=== PATIENT | female | born 1945 | race Caucasian/White ===

== ENCOUNTER 2020-04-21 13:56 | Outpatient (CLI) | payer MEDICARE, SELFPAY ==
--- NOTE | 2020-04-21 13:45 | XR_ITS ---
WS: [id number] SCREENING DEXA SCAN [employer] CLINICAL INFORMATION: ASYMPTOMATIC MENOPAUSAL STATE COMPARISON: FINDINGS: The L1-L4 bone mineral density measures 1.084 g/cm2. This corresponds to a T score score of -0.8 and Z score of 0.9. Left femoral neck bone mineral density measures 0.808 g/cm2. This corresponds to a T score of -1.6 an d Z score of 0.2. Right femoral neck bone mineral density measures 0.811 g/cm2. This corresponds to a T score -1.6of an d Z score of 0.2. Mean femoral neck bone mineral density measures 0.810 g/cm2. This corresponds to a T score of -1.6 an d Z score of 0.2. XR/XR DEXA axial skeleton* [id number] IMPRESSION: Osteopenia in the femoral necks. Normal bone mineralization lumbar spine. Patient's FRAX calculated 10 year probability for major osteoporotic fracture i s 13.3 % and osteoporotic hip fracture is 3.3%.
== END 2020-04-21 13:57 | disposition home or self-care (01) ==
LOC: RADSHAW 13:57
PROVIDERS: Family Provider Family Medicine; PCP Family Medicine; Visit Provider Family Medicine
DX: Z78.0 Asymptomatic menopausal state (principal); M85.862 Other specified disorders of bone density and structure, left lower leg; M85.861 Other specified disorders of bone density and structure, right lower leg
CPT/HCPCS: 77080

== ENCOUNTER 2020-06-13 08:11 | Outpatient (CLI) | payer MEDICARE, SELFPAY ==
--- NOTE | 2020-06-13 08:22 | MM_ITS ---
WS: [id number] BILATERAL SCREENING DIGITAL MAMMOGRAM WITH CAD HISTORY: SCREEN COMPARISON: 05/16/2019 and 03/31/2018 Bilateral CC and MLO views submitted. Computer aided detection analyzed. Breast composition: There are scattered areas of fibroglandular density. No suspicious masses, microc alcifications or architectural distortion. Benign bilateral breast calcifications. No mass. MM/[place] [id number] IMPRESSION: BI-RADS: 2-Benign FOLLOW UP: 1 Year Follow-up
== END 2020-06-13 08:12 | disposition home or self-care (01) ==
LOC: RADSHAW 08:14
PROVIDERS: PCP Family Medicine; Visit Provider Family Medicine
DX: Z12.31 Encounter for screening mammogram for malignant neoplasm of breast (principal)
CPT/HCPCS: 77067

== ENCOUNTER 2021-09-02 08:41 | Outpatient (CLI) | payer MEDICARE, SELFPAY ==
--- NOTE | 2021-09-02 08:47 | MM_ITS ---
WS: [id number] BILATERAL DIGITAL SCREENING MAMMOGRAPHY WITH CAD CLINICAL INFORMATION: SCREENING HISTORY: Screening mammogram. No current complaints. COMPARISON: June 13, 2020 TECHNIQUE: Bilateral CC and MLO views. FINDINGS: Scattered fibroglandular densities bilaterally. Punctate and lucent centered calcifications. Dystroph ic calcifications. No suspicious focal mass, asymmetry, calcifications, or architectural distortion. No evidence of malignancy. MM/[place] [id number] IMPRESSION: BI-RADS: 2-Benign FOLLOW UP: 1 Year Follow-up Recommend return to annual screening mammography.
== END 2021-09-02 08:42 | disposition home or self-care (01) ==
LOC: RADSHAW 08:45
PROVIDERS: PCP Family Medicine; Visit Provider Family Medicine
DX: Z12.31 Encounter for screening mammogram for malignant neoplasm of breast (principal)
CPT/HCPCS: 77067

== ENCOUNTER 2022-09-09 07:57 | Outpatient (CLI) | payer MEDICARE, SELFPAY ==
--- NOTE | 2022-09-09 08:12 | MM_ITS ---
WS: [id number] BILATERAL SCREENING DIGITAL TOMOSYNTHESIS MAMMOGRAM WITH CAD HISTORY: SCREENING COMPARISON: 09/02/2021, 06/13/2020, 05/16/2019 Bilateral CC and MLO views with tomosynthesis and synthetic mammography submitted. Computer aided det ection analyzed. Breast composition: There are scattered areas of fibroglandular density. No suspicious masses, microc alcifications or architectural distortion. Benign calcifications within each breast. MM/[place] [id number] IMPRESSION: BI-RADS: 2-Benign FOLLOW UP: 1 Year Follow-up
== END 2022-09-09 07:58 | disposition home or self-care (01) ==
LOC: RAD 07:58
PROVIDERS: PCP Family Medicine; Visit Provider Family Medicine
DX: Z12.31 Encounter for screening mammogram for malignant neoplasm of breast (principal)
CPT/HCPCS: 77063; 77067

== ENCOUNTER 2023-04-08 13:24 | Outpatient (CLI) | payer MEDICARE, SELFPAY ==
--- NOTE | 2023-04-08 13:36 | XRR_ITS ---
PROCEDURE INFORMATION: Exam: XR Right Knee Exam date and time: 04/08/2023 1:46 PM Age: 77 years old Clinical indication: Pain; Knee; Bilateral; Additional info: Bilateral knee pain TECHNIQUE: Imaging protocol: Radiologic exam of the right knee. Views: 3 views. COMPARISON: No relevant prior studies available. FINDINGS: Bones/joints: No acute fracture or dislocation. Moderate tricompartmental joint space narrowing and marginal osteophyte formation greatest at the medial compartment with associated subchondral sclerosis. Suprapatellar joint effusion. Soft tissues: Unremarkable. Vasculature: Mild peripheral vascular calcifications. XR/XR knee RT 4V [id number] IMPRESSION: 1. Small joint effusion without acute fracture. 2. Moderate right knee tricompartmental osteoarthritis greatest at the medial compartment.
--- NOTE | 2023-04-08 13:36 | XRR_ITS ---
PROCEDURE INFORMATION: Exam: XR Left Knee Exam date and time: 04/08/2023 1:46 PM Age: 77 years old Clinical indication: Pain; Knee; Bilateral; Additional info: Bilateral knee pain TECHNIQUE: Imaging protocol: Radiologic exam of the left knee. Views: 4 or more views. COMPARISON: No relevant prior studies available. FINDINGS: Bones/joints: No acute fracture or dislocation. Moderate tricompartmental nonuniform joint space narrowing and marginal osteophyte formation greatest at the medial compartment with associated subchondral sclerosis and cystic change. Suprapatellar joint effusion. Soft tissues: Small phlebolith at the prefemoral subcutaneous layer. Other findings: Vertical linear artifact noted on all images. XR/XR knee LT 4V [id number] IMPRESSION: 1. Small joint effusion without acute fracture. 2. Moderate tricompartmental left knee osteoarthritis greatest at the medial compartment.
== END 2023-04-08 13:25 | disposition home or self-care (01) ==
PROVIDERS: PCP Family Medicine; Visit Provider Family Medicine
DX: M17.0 Bilateral primary osteoarthritis of knee (principal)
CPT/HCPCS: 73564

== ENCOUNTER → 2023-06-07 08:55 | Outpatient (BNVA) | payer MEDICARE, SELFPAY | PROVIDERS: PCP Family Medicine; Referring Provider Family Medicine; Visit Provider Student in an Organized Health Care Education/Training Program | DX: M25.561 Pain in right knee (principal); M25.562 Pain in left knee; M17.10 Unilateral primary osteoarthritis, unspecified knee; Z46.89 Encounter for fitting and adjustment of other specified devices | CPT/HCPCS: 20610; 73560; 73565; 97760; 99204; J3301; L1851 ==

== ENCOUNTER 2023-06-07 14:10 | Outpatient (CLI) | payer MEDICARE, SELFPAY | END 2023-06-07 14:11 | disposition home or self-care (01) | LOC: SPT 14:11 | PROVIDERS: PCP Family Medicine; Visit Provider Student in an Organized Health Care Education/Training Program | DX: Z46.89 Encounter for fitting and adjustment of other specified devices (principal); M17.10 Unilateral primary osteoarthritis, unspecified knee | CPT/HCPCS: 97760; 99204; L1851 ==

== ENCOUNTER → 2023-07-01 08:43 | Outpatient (BNVA) | payer MEDICARE, SELFPAY | PROVIDERS: PCP Family Medicine; Visit Provider Physician Assistant | DX: G56.03 Carpal tunnel syndrome, bilateral upper limbs (principal) | CPT/HCPCS: 99213 ==

== ENCOUNTER 2023-09-14 08:41 | Outpatient (CLI) | payer MEDICARE, SELFPAY ==
--- NOTE | 2023-09-14 09:23 | MM_ITS ---
WS: [id number] BILATERAL 3D TOMOSYNTHESIS DIGITAL SCREENING MAMMOGRAPHY WITH CAD CLINICAL INFORMATION: SCREEN HISTORY: Screening mammogram. No current complaints. COMPARISON: 2021 TECHNIQUE: Bilateral CC and MLO views. FINDINGS: Scattered fibroglandular densities bilaterally. No suspicious focal mass, asymmetry, calcifications, or architectural distortion. No evidence of malignancy. Incidental punctate and lucent centered calci fications. Stable dystrophic calcification anterior outer RIGHT breast. IMPRESSION: MM/[place] [id number] BI-RADS: 2-Benign FOLLOW UP: 1 Year Follow-up Recommend return to annual screening mammography.
== END 2023-09-14 08:42 | disposition home or self-care (01) ==
LOC: RAD 08:42
PROVIDERS: PCP Family Medicine; Visit Provider Family Medicine
DX: Z12.31 Encounter for screening mammogram for malignant neoplasm of breast (principal)
CPT/HCPCS: 77063; 77067

== ENCOUNTER → 2023-09-23 10:57 | Outpatient (BNVA) | payer MEDICARE, SELFPAY | PROVIDERS: PCP Family Medicine; Visit Provider Student in an Organized Health Care Education/Training Program | DX: M17.0 Bilateral primary osteoarthritis of knee | CPT/HCPCS: 20610; 99213; J3301 ==

== ENCOUNTER → 2024-01-10 14:12 | Outpatient (BNVA) | payer MEDICARE, SELFPAY | PROVIDERS: PCP Family Medicine; Visit Provider Student in an Organized Health Care Education/Training Program | DX: M17.0 Bilateral primary osteoarthritis of knee (principal) | CPT/HCPCS: 99213 ==

== ENCOUNTER 2024-07-19 15:18 | Outpatient (CLI) | payer MEDICARE, SELFPAY ==
--- NOTE | 2024-07-19 15:23 | XR_ITS ---
WS: [id number] SCREENING DEXA SCAN [employer] CLINICAL INFORMATION: ASYMPTOMATIC MENOPAUSAL STATE COMPARISON: 2019 FINDINGS: The L1-L4 bone mineral density measures 1.04. This corresponds to a T score score of -1.3 and Z score of 0.6. Left femoral neck bone mineral density measures 0.733 g/cm2. This corresponds to a T score of -2.2 an d Z score of -0.1. Right femoral neck bone mineral density measures 0.749 g/cm2. This corresponds to a T score -2.1of an d Z score of 0.0. Mean femoral neck bone mineral density measures 0.741 g/cm2. This corresponds to a T score of -2.1 an d Z score of 0.0. XR/XR DEXA axial skeleton* [id number] IMPRESSION: Osteopenia lumbar spine. Osteopenia femoral necks. Patient's FRAX calculated 10 year probability for major osteoporotic fracture i s 16.5% and osteoporotic hip fracture is 5.2%. Bone mineral density lumbar spine decreased -4.4% Bone mineral density femoral necks decreased -8.5%
== END 2024-07-19 15:19 | disposition home or self-care (01) ==
LOC: RAD 15:19
PROVIDERS: PCP Family Medicine; Visit Provider Family Medicine
DX: Z13.820 Encounter for screening for osteoporosis (principal); Z78.0 Asymptomatic menopausal state; M85.80 Other specified disorders of bone density and structure, unspecified site
CPT/HCPCS: 77080

== ENCOUNTER 2024-09-17 09:42 | Outpatient (CLI) | payer MEDICARE, SELFPAY ==
--- NOTE | 2024-09-17 09:49 | MM_ITS ---
WS: [id number] BILATERAL SCREENING DIGITAL TOMOSYNTHESIS MAMMOGRAM WITH CAD HISTORY: SCREENING COMPARISON: 09/14/2023, 09/09/2022, 09/02/2021 Bilateral CC and MLO views with tomosynthesis and synthetic mammography submitted. Computer aided det ection analyzed. Breast composition: There are scattered areas of fibroglandular density. No suspicious masses, microc alcifications or architectural distortion. Scattered benign calcifications in each breast. MM/MM scr tomosynthesis [id number] IMPRESSION: BI-RADS: 2 - Benign. FOLLOW UP: 1 Year Follow-up
== END 2024-09-17 09:43 | disposition home or self-care (01) ==
PROVIDERS: PCP Family Medicine; Visit Provider Family Medicine
DX: Z12.31 Encounter for screening mammogram for malignant neoplasm of breast (principal); R92.323 Mammographic fibroglandular density, bilateral breasts; R92.1 Mammographic calcification found on diagnostic imaging of breast
CPT/HCPCS: 77063; 77067

== ENCOUNTER → 2024-10-02 09:00 | Outpatient (BNVA) | payer MEDICARE, SELFPAY | PROVIDERS: PCP Family Medicine; Referring Provider Family Medicine; Visit Provider Specialist | DX: G56.03 Carpal tunnel syndrome, bilateral upper limbs (principal) | CPT/HCPCS: 95911 ==

== ENCOUNTER 2024-10-05 08:59 | Outpatient (CLI) | payer MEDICARE, SELFPAY ==
--- NOTE | 2024-10-05 09:07 | MR_ITS ---
WS: [id number] MRI BRAIN WITH HIGH-RESOLUTION IMAGING THROUGH THE INTERNAL AUDITORY CANALS WITHOUT AND WITH CONTRAST HISTORY: DIZZINESS COMPARISON: None available. TECHNIQUE: Multiplanar, multisequence imaging is performed through the brain. Additional 3 mm imaging performed in multiple planes through the internal auditory canal. Postcontrast imaging with 14 ml's of MultiHance. No acute intracranial hemorrhage, midline shift, edema or mass effect. Normal diffusion imaging. No acute infarct. Mild cerebral volume loss and mild small vessel ischemic changes in the subcortical white matter. No prior large infarct. Ventricles and extra-axial spaces are normal. No inferior displacement of cerebellar tonsils. Clivus and pituitary gland are normal. Internal and external auditory canals: Unremarkable. Cranial nerves VII and VIII complexes: Unremarkable. No enhancement or mass. Cerebellopontine angles: Normal. Paranasal sinuses: Normal. Mastoid air cells: Normal. Calvarium and scalp: Normal. Visualized [place] and dural venous sinuses demonstrate no abnormality. MR/MR iac's wo/w con* [id number] IMPRESSION: 1. No mass or signal abnormality at the cerebellopontine angles or internal au ditory canals. 2. Mild cerebral atrophy and mild small vessel disease. No large territory inf arct. 3. No intracranial mass. 4. No hippocampal atrophy.
[2024-10-05] MEDS: gadobenate dimeglumine 20 mL vial IV (10:33)
== END 2024-10-05 09:00 | disposition home or self-care (01) ==
PROVIDERS: PCP Family Medicine; Visit Provider Family Medicine
DX: R42 Dizziness and giddiness (principal); G31.9 Degenerative disease of nervous system, unspecified; I73.9 Peripheral vascular disease, unspecified
CPT/HCPCS: 70553

== ENCOUNTER → 2024-11-06 08:19 | Outpatient (BNVA) | payer MEDICARE, SELFPAY | PROVIDERS: PCP Family Medicine; Visit Provider Student in an Organized Health Care Education/Training Program | DX: G56.03 Carpal tunnel syndrome, bilateral upper limbs (principal); M65.322 Trigger finger, left index finger; M65.332 Trigger finger, left middle finger | CPT/HCPCS: 73130; 99214 ==

== ENCOUNTER 2024-11-08 12:12 | Outpatient (RCR) | payer MEDICARE, SELFPAY | END 2024-11-16 23:59 | disposition home or self-care (01) | LOC: SPT 12:12 | PROVIDERS: PCP Family Medicine; Visit Provider Otolaryngology | DX: R42 Dizziness and giddiness (principal) | CPT/HCPCS: 95992; 97161 ==

== ENCOUNTER 2024-11-22 06:16 | Day surgery (SDC) | payer MEDICARE, SELFPAY ==
[2024-11-22 06:36] VITALS: BP 125/72; PULSE 69; RESP 18; TEMP 36.2; O2SAT 95
[2024-11-22 06:43] VITALS: BMI 27.3
[2024-11-22] MEDS: ketorolac 30 mg/mL INJ IVP (06:48)
[2024-11-22] MEDS: sodium chloride 0.9% 1,000 ML 30 ML IV (06:48)
[2024-11-22] MEDS: acetaminophen 1,000 MG/100 ML PIGGYBACK 400 MG IV (06:49)
--- NOTE | 2024-11-22 07:04 | ANES.PREANE2 ---
Pre-Anesthetic Assessment Height/Weight: Height 1.55 m Weight 65.771 kg Temp Pulse Resp BP Pulse Ox O2 Del Method 97.1 F L 69 18 125/72 95 Room Air 11/22/24 06:36 11/22/24 06:36 11/22/24 06:36 11/22/24 06:36 11/22/24 06:36 11/22/24 06:36 Preop Diagnosis: Left Carpal Tunnel syndrome, left index and middle finger trigger Operation Date: 11/22/24 08:00 Proposed Procedures p Carpal Tunnel Release(Left) - Jose Sauk, DO s Trigger Finger Release left index and left middle finger(Left) - Jose Sauk, DO Familial anesthetic complications: None Was Beta Christy taken within 24 hours: N/A Was Clonidine taken within 24 hours: N/A Last intake: Intake Last Liquid Date 11/21/24 Last Liquid Time 19:00 Last Solid Date 11/21/24 Last Solid Time 18:00 Social No alcohol and No tobacco Exam alert, oriented x 3, clear to auscultation bilaterally and regular rate & rhythm Airway Mallampati: Class I Dentition: other (upper molars mimssing) Metabolic Thyroid Disease Anesthetic Plan ASA status: 2 Risk of > 500 ml blood loss (7ml/kg in children): No Other Pertinent Information Patient had injection in her eye yesterday for macular degeneration. States it was a liquid, not air/bubble. Will avoid nitrous oxide out of caution Medications/Allergies Home Medications ?Medication ?Instructions ?Recorded ?Confirmed ?Last Taken ?Type Certified Residential Medication Aide Brace #1 ea 06/07/23 11/06/24 Unknown Rx levothyroxine 75 mcg capsule 75 mcg PO DAILY 06/07/23 11/21/24 11/21/24 History Allergies Allergy/AdvReac Type Severity Reaction Status Date / Time No Known Allergies Allergy Verified 11/22/24 06:59 Current Medications Generic Name Dose Route Start Last Admin Trade Name Freq PRN Reason Stop Dose Admin Sodium Chloride 1,000 mls @ 30 mls/hr 11/22/24 06:30 11/22/24 06:48 Sodium Chloride 0.9% IV 11/23/24 06:29 30 mls/hr .Q24H ABBI Administration PFSH Anesthesia Social History Smoking and tobacco/nicotine status: never used tobacco/nicotine Alcohol intake: never Data Anesthesia Cardiac Studies: No Data to Display
--- NOTE | 2024-11-22 07:06 | W.PM.OPSUD ---
Surgery/Procedure H&P Update DATE OF PROCEDURE: November 22, 2024 DATE H&P PERFORMED: 11/06/24 H&P UPDATE INFORMATION: I have reviewed H&P completed within last 30 days, I have examined patient prior to procedure and No changes to prior documentation PREOP DIAGNOSIS: Left Carpal Tunnel syndrome, left index and middle finger trigger PRIMARY INDICATION FOR PROCEDURE: Left carpal tunnel syndrome, left index and middle finger trigger PLANNED PROCEDURE: Operation Date: 11/22/24 08:00 Proposed Procedures p Carpal Tunnel Release(Left) - Jose Vera DO s Trigger Finger Release left index and left middle finger(Left) - Jose Vera DO
[2024-11-22] MEDS: ceFAZolin 2,000 mg SDV 2000 MG IVP (07:42)
[2024-11-22] MEDS: lidocaine 1% 10 ML INJ 5 ML XX (08:08)
[2024-11-22] MEDS: ROPivacaine 0.5% SDV 30 mL 50 MG INJECTION (08:10)
[2024-11-22] MEDS: lidocaine-epi 1% 20 mL INJ 5 ML INJECTION (08:10)
--- NOTE | 2024-11-22 08:34 | P.OP_ITS ---
Operative Report Date of procedure: November 22, 2024 Surgeon: Jose Vera DO Procedure: Preop Diagnosis: Left Carpal Tunnel Syndrome Left index finger trigger Left middle finger trigger Post-op diagnosis: Same Procedure done: 1. Left carpal tunnel release 2. Left index finger trigger release 3. Left middle finger trigger release Surgeon: Jose Vrea DO Anesthesia: MAC (Local) Estimated blood loss: [10 ]mL Tourniquet time [15 ]minutes IV fluids: See anesthesia record Complications: None Findings: See operative report narrative Condition: stable Disposition: same day Brief History: Patient is a pleasant [ 79 ]year-old [ F ] with left carpal tunnel syndrome and left index and middle finger triggers. Patient has been worked up in the outpatient setting findings and physical examination consistent with this. Patient nerve conduction studies consistent with carpal tunnel syndrome. We detailed out patient's risk benefits complication alternatives with surgical and nonsurgical treatment options. Through shared decision making, patient agrees to proceed with surgical intervention of the left carpal tunnel release and left index finger trigger release, left middle finger trigger release. Patient understands and agrees with current plan. All questions answered. Patient elects to proceed with surgical intervention. Procedure: Patient seen and evaluated in the preoperative holding area. Consent was review ed and signed with patient. Correct extremity was marked. Patient was seen evaluated by the anesthesia department once cleared for surgery was brought back to the operative suite. Patient was kept on [facility] in supine position all bony prominences were well-padded patient properly secured to the bed. Left upper extremity was then placed onto an armboard. A nonsterile tourniquet was applied to the left upper arm. Patient underwent anesthesia per the anesthesia department. Patient's left upper extremity was then prepped and draped in standard orthopedic fashion. Final timeout performed. Patient received appropriate preoperative antibiotics. Under sterile aseptic technique patient received local anesthesia over the preplanned carpal tunnel incision site and left index and middle finger trigger digital blocks performed. Esmarch was used to exsanguinate the left upper extremity and tourniquet was insufflated to 250 mmHg. A standard mini open left carpal tunnel incision was made. Starting distally at Mahajan's cardinal line in line with the fourth ray extending proximally distal to the wrist crease centered over the carpal tunnel. Sharp scalpel incision was made through skin and subcutaneous tissue. Self-retaining retractor was placed and the palmar fascia was identified. This was then split longitudinally and direct visualization of the transverse carpal ligament was then made. I then utilizing scalpel feathered through the transverse carpal ligament until I entered the floor of the transverse carpal tunnel ligament into the carpal tunnel. Next I switched to dissection scissors and completed my release of the transverse carpal ligament distally with care to protect the recurrent motor branch. I completely released into the palmar fat and until no entrapment was noted distally. Care was made to protect the superficial palmar arch during my distal dissection. Next, nasal speculum placed proximally for retraction of soft tissue on top of the Transverse carpal ligament. Next the contents of the carpal tunnel where protected and and subsequently utilizing dissection scissors under loupe magnification completely released the transverse carpal ligament proximally into the antebrachial fascia. Care was made to protect the palmar cutaneous branch by keeping my scissors curved ulnarly. Once completely released, I then placed my [place] and had appropriate decompression of the carpal tunnel proximally as well as distally. I then inspected the contents of the carpal tunnel which showed an hourglass shape of the median nerve showing its compression. No masses were noted. Tendons appeared healthy. Wound was then thoroughly irrigated. Wet Ray-Petey placed inside the incision and proceeded with trigger releases. Next proceeded with left index finger trigger release and middle finger trigger release. Once appropriately anesthetized a standard oblique incision was made centering over the A1 omid following patient's flexor crease?for the index finger first. Sharp scalpel incision was made only through skin and then switched to Littler dissection scissors and spread longitudinally directly over the flexor tendon sheath.? I then mobilized both radially and ulnarly and Kasdan retractors were used and placed by my health education assistant to protect neurovascular bundle.? Next I visualized the A1 omid and this was incised with a scalpel.? I then switched to dissection scissors and released the A1 omid both proximally as well as distally to its entirety.? Significant tendon sheath fluid was noted consistent with inflammation.? Mild fraying of the flexor tendons noted but no tear.? At this point I utilized a rag nail and pulled the tendons FDS and FDP out of the incision and no?triggering was noted.? Next I proceeded with trigger release of the middle finger. A standard oblique incision was made centering over the A1 omid following patient's flexor crease?for the index finger first. Sharp scalpel incision was made only through skin and then switched to Littler dissection scissors and spread longitudinally directly over the flexor tendon sheath.? I then mobilized both radially and ulnarly and Kasdan retractors were used and placed by my health education assistant to protect neurovascular bundle.? Next I visualized the A1 omid and this was incised with a scalpel.? I then switched to dissection scissors and released the A1 omid both proximally as well as distally to its entirety.? Significant tendon sheath fluid was noted consistent with inflammation.? Mild fraying of the flexor tendons noted but no tear.? At this point I utilized a rag nail and pulled the tendons FDS and FDP out of the incision and no?triggering was noted.? I then had anesthesia wake up the patient and patient was able to actively flex and extend with no?triggering.? This point thorough irrigation was performed.? Tourniquet deflated hemostasis satisfactory with bipolar.? I then subsequently closed the incisions with interrupted nylon suture.? Xeroform 4 x 4's, Kerlix and an Sigifredo wrap was applied for a bulky soft dressing.? Patient was then subsequently awakened from anesthesia and taken to PACU in stable condition tolerated procedure without issues. Disposition: Patient taken to PACU in stable condition recovering well. Dressing clean dry and intact. Patient will receive appropriate discharge instructions as well as pain medication postoperatively. Patient to follow-up with me in the office in 2 weeks. They understand they may be weightbearing as tolerated to the left hand. Patient should keep incision clean dry and intact. Patient understands if any questions or concerns may contact the office.
--- NOTE | 2024-11-22 08:34 | W.PM.BPON ---
Date of Procedure: [11/22/2024] Surgeon: [Jose Vera DO] Motor And Generator Brush Maker(s): [None] Procedure(s) performed: Left carpal tunnel release Left index finger trigger release Left middle finger trigger release Findings of the procedure(s): Patient underwent left carpal tunnel release and left index finger and left middle finger trigger release without issues or complications Estimated blood loss: [10mL] Specimen(s) removed: [None] Post-operative diagnosis: [Left carpal tunnel syndrome, left index finger trigger, left middle finger trigger]
[2024-11-22 08:36] VITALS: BP 99/53; PULSE 69; RESP 16; TEMP 36.2; O2SAT 93
[2024-11-22 08:41] VITALS: BP 90/48; PULSE 68; RESP 16; O2SAT 93
[2024-11-22 08:46] VITALS: BP 107/60; PULSE 68; RESP 16; O2SAT 94
[2024-11-22 08:51] VITALS: BP 106/59; PULSE 66; RESP 16; TEMP 36.2; O2SAT 93
[2024-11-22 09:39] VITALS: BP 119/65; PULSE 59; RESP 18; O2SAT 99
--- NOTE | 2024-11-22 10:10 | ANE.PACU2 ---
Inpatient post-anesthesia follow up: Airway intact: Yes Vital signs: Temperature 97.1 F Pulse Rate 59 Respiratory Rate 18 Blood Pressure 119/65 Pulse Oximetry 99 Oxygen Delivery Me thod Room Air Oxygen Flow Rate Fraction of Inspir ed Oxygen Hydration adequate: Yes Nausea and vomiting: No Pain level: 1 Mental status: Baseline
== END 2024-11-22 10:12 | disposition home or self-care (01) ==
PROVIDERS: PCP Family Medicine; Visit Provider Student in an Organized Health Care Education/Training Program
PROC: (CPT 64721; principal; 2024-11-22 08:00)
PROC: (CPT 26055; 2024-11-22 08:00)
DX: G56.02 Carpal tunnel syndrome, left upper limb (principal); K08.409 Partial loss of teeth, unspecified cause, unspecified class; M65.322 Trigger finger, left index finger; H35.30 Unspecified macular degeneration; M65.332 Trigger finger, left middle finger; Z79.890 Hormone replacement therapy
CPT/HCPCS: 64721; 26055 ×2; J0131; J0690; J1885; J2704; J2795; J7030

== ENCOUNTER → 2024-12-11 10:17 | Outpatient (BNVA) | payer MEDICARE, SELFPAY | PROVIDERS: PCP Family Medicine; Visit Provider Physician Assistant | DX: Z98.890 Other specified postprocedural states (principal) | CPT/HCPCS: 99024 ==

== ENCOUNTER 2024-12-18 09:51 | Outpatient (RCR) | payer MEDICARE, SELFPAY | END 2025-01-16 23:59 | disposition home or self-care (01) | LOC: SOT 09:51 | PROVIDERS: Visit Provider Physician Assistant | DX: G56.02 Carpal tunnel syndrome, left upper limb (principal); M65.322 Trigger finger, left index finger; M65.332 Trigger finger, left middle finger; Z48.811 Encounter for surgical aftercare following surgery on the nervous system | CPT/HCPCS: 97022; 97035; 97110; 97140; 97166 ==

== ENCOUNTER 2025-01-17 05:00 | Outpatient (RCR) | payer MEDICARE, SELFPAY | END 2025-02-16 23:59 | disposition home or self-care (01) | LOC: SOT 05:00 | PROVIDERS: Visit Provider Physician Assistant | DX: G56.02 Carpal tunnel syndrome, left upper limb (principal); M65.322 Trigger finger, left index finger; M65.332 Trigger finger, left middle finger | CPT/HCPCS: 97022; 97140 ==

== ENCOUNTER → 2025-04-17 10:52 | Outpatient (BNVA) | payer MEDICARE, SELFPAY | PROVIDERS: Referring Provider Nurse Practitioner Family; Visit Provider Psychiatry & Neurology Neurology | DX: R42 Dizziness and giddiness (principal); E07.9 Disorder of thyroid, unspecified; E55.9 Vitamin D deficiency, unspecified | CPT/HCPCS: 36415; 80053; 82306; 82607; 82746; 83735; 83921; 84207; 84439; 84443; 84591; 85025; 99203 ==

== ENCOUNTER → 2025-05-03 11:33 | Outpatient (BNVA) | payer MEDICARE, SELFPAY | PROVIDERS: Referring Provider Specialist; Visit Provider Specialist | DX: R42 Dizziness and giddiness (principal) | CPT/HCPCS: 95816 ==

== ENCOUNTER → 2025-07-03 14:24 | Outpatient (BNVA) | payer MEDICARE, SELFPAY | PROVIDERS: PCP Family Medicine; Visit Provider Specialist | DX: G43.801 Other migraine, not intractable, with status migrainosus (principal); R42 Dizziness and giddiness; R26.9 Unspecified abnormalities of gait and mobility; R03.0 Elevated blood-pressure reading, without diagnosis of hypertension | CPT/HCPCS: 99215 ==